=== PATIENT | female | born 1980 | race Caucasian/White ===

== ENCOUNTER 2018-04-17 11:18 | Outpatient (CLI) | payer BC ==
[2018-04-17] MEDS ORDERED: GABA300C10 PO (12:04)
[2018-04-17] MEDS ORDERED: HYDR25TA11 PO (12:04)
[2018-04-17] MEDS ORDERED: BUSP15TA PO (12:04)
[2018-04-17] MEDS ORDERED: PHEN30CA3 PO (12:04)
[2018-04-17] MEDS ORDERED: [UNRECOGNIZED DRUG - OTHER] (12:04)
[2018-04-17] MEDS ORDERED: LACT1CAP37 PO (12:04)
[2018-04-17] MEDS ORDERED: SENN-123 PO (12:04)
[2018-04-17] MEDS ORDERED: POTASSIUM PO (12:04)
[2018-04-17] MEDS ORDERED: FLUO40CA9 PO (12:04)
[2018-04-17] MEDS ORDERED: MULT-516 PO (12:04)
[2018-04-17] MEDS ORDERED: CHOL200024 PO (12:04)
[2018-04-17] MEDS ORDERED: PAMA50TA PO (12:04)
[2018-04-17] MEDS ORDERED: VITA1CAP7 PO (12:04)
[2018-04-17] MEDS ORDERED: MAGNESIUM PO (12:04)
== END 2018-04-17 23:59 | disposition home or self-care (01) ==
LOC: STAR 11:18
PROVIDERS: ATTEND Orthopaedic Surgery
DX: Z02.9 Encounter for administrative examinations, unspecified (principal)

== ENCOUNTER 2018-04-23 12:08 | Day surgery (SDC) | payer BC ==
[~2018-04-23] VITALS: Ht 177.8 cm; Wt 111.1 kg
[~2018-04-23 12:08] MED LIST: BUSP15TA PO; CHOL200024 PO; FLUO40CA9 PO; GABA300C10 PO; HYDR25TA11 PO; LACT1CAP37 PO; LIDOCAINE 1%, 20ML ONE; MAGNESIUM PO; MULT-516 PO; PAMA50TA PO; PHEN30CA3 PO; POTASSIUM PO; SENN-123 PO; VITA1CAP7 PO; [UNRECOGNIZED DRUG - OTHER]
[2018-04-23] MEDS ORDERED: LACTATED RINGERS 1,000 ML IV SCH (12:43)
[2018-04-23 12:44] VITALS: BP 140/83
[2018-04-23] MEDS ORDERED: IBUP-1221 PO (12:47)
[2018-04-23] MEDS ORDERED: NAPR220C2 PO (12:47)
[2018-04-23] MEDS ORDERED: LIDOCAINE 1%, 20ML ONE (13:01)
[2018-04-23] MEDS ORDERED: SCOPOLAMINE PATCH, 1.5MG PATCH.TD72 TD ONE ×2 (13:21→13:30)
[2018-04-23 13:23] LABS: HCG UR SG 1.022 (1.003-1.030)
[2018-04-23 13:33] LABS: ALANINE AMINOTRANSFERASE 243 U/L (12-78); ALBUMIN 3.7 g/dL (3.4-5.0); ANION GAP 7 mmol/L (5-15); CALCIUM 8.6 mg/dL (8.5-10.1); CHLORIDE 111 mmol/L (98-107); CREATININE 0.67 mg/dL (0.55-1.02)
[2018-04-23 13:35] LABS: ALKALINE PHOSPHATASE 109 U/L (45-117); BILIRUBIN,TOTAL 0.6 mg/dL (0.2-1.0); TOTAL PROTEIN 7.3 g/dL (6.4-8.2)
[2018-04-23] MEDS ORDERED: MIDAZOLAM 1 MG/ML, 2ML ONE (13:47)
[2018-04-23] MEDS ORDERED: FENTANYL PF 250 MCG/5ML ONE (13:47)
[2018-04-23] MEDS ORDERED: EPINEPHRINE 1 MG/ML, 1ML ONE (14:13)
[2018-04-23] MEDS ORDERED: ROPIvacaine/PF 0.5%, 30 ML ONE (14:13)
[2018-04-23] MEDS ORDERED: PROPOFOL 10 MG/ML, 20ML ONE (14:28)
[2018-04-23] MEDS ORDERED: CEFAZOLIN 1,000 MG ONE (14:28)
[2018-04-23] MEDS ORDERED: DEXAMETHASONE 4 MG/ML, 1ML ONE (14:28)
[2018-04-23] MEDS ORDERED: ONDANSETRON 2MG/ML, 2ML ONE (14:28)
[2018-04-23] MEDS ORDERED: SUCCINYLCHOLINE 20 MG/ML, 10ML ONE (14:28)
[2018-04-23] MEDS ORDERED: HALOPERIDOL 5 MG/ML IV PRN ×2 (14:30)
[2018-04-23] MEDS ORDERED: hydrALAzine 20 MG/ML, 1ML IV PRN (14:30)
[2018-04-23] MEDS ORDERED: HYDROmorphone 2 MG/ML, 1ML IVPush PRN (14:30)
[2018-04-23] MEDS ORDERED: MEPERIDINE/PF 25MG/0.5ML IVPush PRN (14:30)
[2018-04-23] MEDS ORDERED: ONDANSETRON ODT 8 MG PO PRN (14:30)
[2018-04-23] MEDS ORDERED: ACETAMINOPHEN 325 MG TABLET PO PRN (14:30)
[2018-04-23] MEDS ORDERED: OXYcodone 5 MG/5 ML ORAL.SOL UDC PO PRN (14:30)
[2018-04-23] MEDS ORDERED: MORPHINE SULFATE 4 MG/ML, 1ML IVPush PRN (14:30)
[2018-04-23] MEDS ORDERED: LABETALOL 5MG/ML, 20ML IV PRN (14:30)
[2018-04-23] MEDS ORDERED: FENTANYL PF 100 MCG/2ML IV PRN (14:30)
[2018-04-23] MEDS ORDERED: DIPHENHYDRAMINE 50 MG/ML, 1ML IVPush PRN (14:30)
[2018-04-23] MEDS ORDERED: ONDANSETRON 2MG/ML, 2ML IV PRN (14:30)
[2018-04-23] MEDS ORDERED: OXYcodone 5 MG/5 ML ORAL.SOL UDC ONE (15:19)
[2018-04-23] MEDS ORDERED: KETOROLAC 30 MG/1 ML ONE (15:20)
[2018-04-23] MEDS ORDERED: FENTANYL PF 100 MCG/2ML ONE (15:20)
[2018-04-23] MEDS ORDERED: ACETAMINOPHEN 650 MG/20.3 ML UDC ONE (15:20)
[2018-04-23] MEDS ORDERED: KETOROLAC 30 MG/1 ML IV ONE (16:00)
[2018-04-23] MEDS ORDERED: KETOROLAC 30 MG/1 ML IV PRN (16:00)
== END 2018-04-23 17:35 | disposition home or self-care (01) ==
LOC: OUT 12:08
PROVIDERS: ATTEND Orthopaedic Surgery
DX: S83.271A Complex tear of lateral meniscus, current injury, right knee, initial encounter (principal); M65.861 Other synovitis and tenosynovitis, right lower leg; M67.51 Plica syndrome, right knee; F32.9 Major depressive disorder, single episode, unspecified; Z88.8 Allergy status to other drugs, medicaments and biological substances; Z98.890 Other specified postprocedural states; X58.XXXA Exposure to other specified factors, initial encounter; Y93.89 Activity, other specified; Y92.89 Other specified places as the place of occurrence of the external cause; Y99.8 Other external cause status
CPT/HCPCS: 29876; 29881; 36415; 80053; 81025; J0171; J0330; J0690; J1100; J1885; J2250; J2405; J2704; J2795; J3010; J3490; J7120

== ENCOUNTER → 2018-05-01 | Outpatient (CLI) | payer BC ==
[~2018-05-01] MED LIST changes: +IBUP-1221 PO; -LIDOCAINE 1%, 20ML ONE; +NAPR220C2 PO
== END | disposition home or self-care (01) ==
LOC: CFH 10:09
PROVIDERS: ATTEND Physician Assistant Surgical
DX: M79.661 Pain in right lower leg (principal); R22.41 Localized swelling, mass and lump, right lower limb